=== PATIENT | female | born 1945 | race Caucasian/White ===

== ENCOUNTER 2020-11-15 13:39 | Emergency (ER) | payer MEDICARE, OTHER ==
[~2020-11-15] VITALS: Ht 170.2 cm; Wt 77.1 kg
[2020-11-15] MEDS ORDERED: LEVO-T100 MCG PO (14:03)
[2020-11-15] MEDS ORDERED: LEXAPRO20 MG PO (14:03)
[2020-11-15] MEDS ORDERED: LOPRESSOR100 M1 PO (14:03)
[2020-11-15] MEDS ORDERED: LEVOTHYROXINE13 MCG PO (14:03)
[2020-11-15] MEDS ORDERED: PRAVACHOL40 MG PO (14:04)
[2020-11-15] MEDS ORDERED: REMERON15 M2 PO (14:04)
[2020-11-15] MEDS ORDERED: BENICAR20 MG PO (14:04)
[2020-11-15] MEDS ORDERED: WELLBUTRIN SR150 M1 PO (14:04)
[2020-11-15] MEDS ORDERED: PRORENAL VITAL1 EACH PO (14:05)
[2020-11-15] MEDS ORDERED: VITAMIN D3100 MCG PO (14:05)
[2020-11-15] MEDS ORDERED: CHILDREN'S ASPI81 M1 PO (14:05)
[2020-11-15 14:39] LABS: ABSOLUTE BASOPHILS 0.1 thou/uL (0.0-0.2); ABSOLUTE EOSINOPHILS 0.1 thou/uL (0.0-0.7); ABSOLUTE LYMPHOCYTES 0.9 thou/uL (0.8-5.3); ABSOLUTE MONOCYTES 0.6 thou/uL (0.0-1.2); ABSOLUTE NEUTROPHILS 3.3 thou/uL (1.6-8.1); BASOPHILS 1.2 %; EOSINOPHILS 1.4 %; HEMATOCRIT 49.7 % (37.0-47.0); HEMOGLOBIN 16.8 gm/dL (12.0-15.0); LYMPHOCYTES 18.6 %; MCH 31.3 pg (26.0-34.0); MCHC 33.7 g/dL (28.0-37.0); MCV 92.9 fL (80.0-100.0); MONOCYTES 12.3 %; MPV 8.1 fl. (7.2-11.1); NUCLEATED RBCS 0 /100WBC; PLATELET COUNT* 140 thou/uL (150-400); POLYS 66.5 %; RBC 5.35 mil/uL (4.20-5.00); RDW-CV 13.5 % (10.5-14.5)
[2020-11-15 14:48] LABS: CALCIUM 9.1 mg/dL (8.5-10.1); CREATININE 1.4 mg/dL (0.6-1.3); POTASSIUM 4.5 mmol/L (3.5-5.1)
[2020-11-15 14:52] LABS: ALBUMIN 3.4 g/dL (3.4-5.0); TOTAL BILIRUBIN 0.6 mg/dL (<0.1-1.0); TOTAL PROTEIN 6.9 g/dL (6.4-8.2)
--- NOTE | 2020-11-15 15:55 | EKG ---
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: [facility] : 1945 Requested By: Meaghan Mancuso Order Number: [id number] MD: Estrada Brown Measurements Intervals [employer] [place] Rate: 62 P: [place]: 295 QRS: 6 QRSD: 84 T: 5 QT: 463 QTc: 471 Interpretive Statements Atrial-paced rhythm septal q waves noted Borderline T abnormalities, diffuse leads No previous ECG available for comparison Electronically Signed On 11-15-2020 15:54:48 SET UP [employer]ACH[employer] by Estrada Brown [email or web address] <ELECTRONICALLY SIGNED> By: Estrada Brown MD, [facility] 11/15/20 1554 1437 143 Estrada Brown MD, FAC /EPI
[2020-11-15] MEDS ORDERED: BENTYL 20 MG TA20 M1 PO (16:16)
[2020-11-15] MEDS ORDERED: ONDANSETRON HCL4 M2 PO (16:16)
[2020-11-15] MEDS ORDERED: LOMOTIL TABLET1 EACH PO (16:26)
[2020-11-15 16:30] VITALS: BP 121/71
== END 2020-11-15 16:30 | disposition home or self-care (01) ==
LOC: M.ERS 13:39
PROVIDERS: Nurse Practitioner Family
DX: K52.9 Noninfective gastroenteritis and colitis, unspecified (principal); Z20.828 Contact with and (suspected) exposure to other viral communicable diseases; I10 Essential (primary) hypertension; Z90.49 Acquired absence of other specified parts of digestive tract; Z79.899 Other long term (current) drug therapy; Z79.82 Long term (current) use of aspirin

== ENCOUNTER 2020-11-18 12:58 | Emergency (ER) | payer MEDICARE, OTHER ==
[~2020-11-18] VITALS: Ht 170.2 cm; Wt 72.6 kg
[~2020-11-18 12:58] MED LIST: BENICAR20 MG PO; BENTYL 20 MG TA20 M1 PO; CHILDREN'S ASPI81 M1 PO; LEVO-T100 MCG PO; LEVOTHYROXINE13 MCG PO; LEXAPRO20 MG PO; LOMOTIL TABLET1 EACH PO; LOPRESSOR100 M1 PO; ONDANSETRON HCL4 M2 PO; PRAVACHOL40 MG PO; PRORENAL VITAL1 EACH PO; REMERON15 M2 PO; VITAMIN D3100 MCG PO; WELLBUTRIN SR150 M1 PO
[2020-11-18 13:37] LABS: URINE BILIRUBIN NEGATIVE (Negative); URINE BLOOD NEGATIVE (Negative); URINE CLARITY CLEAR; URINE COLOR YELLOW; URINE GLUCOSE-RANDOM NEGATIVE (Negative); URINE KETONES NEGATIVE (Negative); URINE LEUKOCYTES-REFLEX TRACE (Negative); URINE NITRITE-REFLEX NEGATIVE (Negative); URINE PROTEIN TRACE (Negative); URINE SPECIFIC GRAVITY 1.015 (1.005-1.030); URINE UROBILINOGEN 0.2 E.U./dl (0.2-1.0)
[2020-11-18 13:46] LABS: SQUAMOUS >10 Many /LPF (0-3); URINE RBC None Seen /HPF (0-2); URINE WBC-REFLEX 0-5 Rare /HPF (0-5)
[2020-11-18 13:46] LABS: ABSOLUTE BASOPHILS 0.1 thou/uL (0.0-0.2); ABSOLUTE EOSINOPHILS 0.1 thou/uL (0.0-0.7); ABSOLUTE LYMPHOCYTES 0.9 thou/uL (0.8-5.3); ABSOLUTE MONOCYTES 0.4 thou/uL (0.0-1.2); ABSOLUTE NEUTROPHILS 3.2 thou/uL (1.6-8.1); BASOPHILS 1.3 %; EOSINOPHILS 2.2 %; HEMATOCRIT 50.4 % (37.0-47.0); HEMOGLOBIN 16.9 gm/dL (12.0-15.0); LYMPHOCYTES 19.9 %; MCH 31.1 pg (26.0-34.0); MCHC 33.6 g/dL (28.0-37.0); MCV 92.6 fL (80.0-100.0); MONOCYTES 9.4 %; MPV 8.1 fl. (7.2-11.1); NUCLEATED RBCS 0 /100WBC; PLATELET COUNT* 151 thou/uL (150-400); POLYS 67.2 %; RBC 5.44 mil/uL (4.20-5.00); RDW-CV 13.7 % (10.5-14.5); WBC 4.7 thou/uL (4.0-11.0)
[2020-11-18 13:47] LABS: BACTERIA-REFLEX 1-9 Few /HPF (None Seen); CRYSTALS None Seen /LPF (None Seen); HYALINE CASTS 4-10 Moderate /LPF (None Seen); MUCUS None Seen strn/LPF (None Seen)
[2020-11-18 13:53] LABS: CALCIUM 8.9 mg/dL (8.5-10.1); CREATININE 1.4 mg/dL (0.6-1.3); POTASSIUM 3.7 mmol/L (3.5-5.1)
[2020-11-18 13:57] LABS: ALBUMIN 3.5 g/dL (3.4-5.0); TOTAL BILIRUBIN 0.6 mg/dL (<0.1-1.0); TOTAL PROTEIN 6.8 g/dL (6.4-8.2)
[2020-11-18 14:30] VITALS: BP 142/76
== END 2020-11-18 14:30 | disposition home or self-care (01) ==
LOC: M.ERS 12:58
PROVIDERS: Physician Assistant
DX: R19.7 Diarrhea, unspecified (principal); I10 Essential (primary) hypertension; Z90.49 Acquired absence of other specified parts of digestive tract

== ENCOUNTER → 2020-11-19 | Outpatient (CLI) | payer MEDICARE, OTHER | LOC: M.LAB 10:27 | PROVIDERS: ATTEND Physician Assistant | DX: R19.7 Diarrhea, unspecified (principal) ==